=== PATIENT | female | born 1955 | race Caucasian/White ===

== ENCOUNTER 2016-10-13 12:00 | Emergency (ER) | payer OTHER ==
[2016-10-13] MEDS ORDERED: ZOFRAN ODT PO ONE (13:29)
[2016-10-13 14:13] LABS: BASO% 0.1 % (0.0-0.8); HEMATOCRIT 38.4 % (37.0-47.0); HEMOGLOBIN 13.2 g/dL (12.0-16.0); LYMPH# 0.95 X1000 (1.2-3.4); LYMPH% 7.9 % (20.5-51.1); MANUAL DIFF NEEDED? NO; MCH 29.5 PG (27-31); MCHC 34.4 g/dL (33-37); MCV 85.9 FL (81-99); MONO# 0.38 X1000 (0.11-0.59); MONO% 3.2 % (1.7-9.3); MPV 11.8 FL (7.4-10.4); NEUT% 88.8 % (42.2-75.2); PLT 246 X1000 (130-400); RBC 4.47 XMIL (4.2-5.4)
[2016-10-13 14:37] LABS: AGAP 18; ALBUMIN 4.5 g/dL (3.5-5.0); ALKALINE PHOSPHATASE 83 U/L (32-104); AMYLASE 32 U/L (20-200); BUN 21 mg/dL (8-22); CALCIUM 9.8 mg/dL (8.8-10.2); CHLORIDE 88 mmol/L (98-107); COSMO 276; GOT 19 U/L (10-30); GPT 19 U/L (10-36); LIPASE 17 U/L (13-60); MAGNESIUM 1.6 mg/dL (1.5-2.7); SODIUM 131 mmol/L (136-145); TCO2 25 mmol/L (25-35); TOTAL BILIRUBIN 0.43 mg/dL (0.20-1.00)
[2016-10-13] MEDS ORDERED: NS 1,000 ML IV ONE (15:05)
[2016-10-13] MEDS ORDERED: PHENERGAN IV ONE ×2 (15:05→18:51)
[2016-10-13] MEDS ORDERED: SODIUM CHLORIDE 0.9% INJ ONE ×2 (15:05→18:51)
--- NOTE | 2016-10-13 15:26 | PROVIDER DOCUMENTATION ---
Addendum entered and electronically signed by Pj Montes MD 10/13/16 18:58 : Additional Progress - ADDITIONAL PLAN OF CARE/RESULTS Additional Progress/Plan/Lab Results: examined left eye- pressure ok, notable photophobia, reactive 4mm pupil,no hyphema,no anterior chamber cloudiness, patient uncooperative to fundoscopic exam Original Note: HPI-General Adult - General Source: patient - History of Present Illness -Gen Adult Nature of Presenting Problems: Pt is a 61 yof who came to the ED with a cc of vomiting. Pt reports she vomited since last night and can't keep anything down. <Liudmila Mejia - Last Filed: 10/13/16 17:53> <Pj Montes - Last Filed: 10/13/16 18:49> - General Chief Complaint: Vomiting Stated Complaint: HEADACHE Time Seen by Provider: 10/13/16 12:45 Allergies/Adverse Reactions: Patient Allergies Allergy/AdvReac Type Severity Reaction Status Date / Time codeine Allergy Mild NAUSEA/VOMI Verified 10/13/16 17:58 TING Home Medications: Glimepiride [Amaryl] 4 mg PO BID 12/01/13 Metformin [Glucophage] 500 mg PO BID 12/01/13 PRAVAstatin [Pravachol] 20 mg PO DAILY 06/09/14 Sitagliptin Phosphate [Januvia] 100 mg PO DAILY 06/09/14 Aspirin [Aspirin EC] 81 mg PO DAILY 09/05/14 ATORVAstatin [Lipitor] 80 mg PO DAILY 10/13/16 Bupropion HCl [Bupropion Xl] 150 mg PO 5XDAY 10/13/16 ENALApril [Vasotec] 2.5 mg PO DAILY 10/13/16 Gabapentin 600 mg PO TID 10/13/16 Trazodone [Desyrel] 50 mg PO QHS 10/13/16 Review of Systems - Adult - REVIEW OF SYSTEMS - ADULT Constitutional: denies: chills, fever Eyes: denies: blurred vision, double vision Ears, Nose, Mouth & Throat: reports: no symptoms reported Cardiovascular: denies: heart murmur, orthopnea Respiratory: reports: no symptoms reported Gastrointestinal: reports: nausea, vomiting. denies: abdominal pain, hematemesis, diarrhea, difficulty swallowing, frequent heartburn Genitourinary: denies: frequent UTI's, hesitency Musculoskeletal: reports: no symptoms reported Integumentary: reports: no symptoms reported Neurological: reports: no symptoms reported Psychiatric: reports: no symptoms reported Endocrine: reports: no symptoms reported Hematologic/Lymphatic: reports: no symptoms reported Allergic/Immunologic: reports: no symptoms reported All Other Systems: Reviewed and Negative <Liudmila Mejia Filed: 10/13/16 17:53> Past History - Adult - PAST MEDICAL HISTORY-ADULT Review of Records: reports: Old Records Reviewed, Nursing Assessment Review Major Childhood Illnesses: reports: denies history Cardiovascular: reports: HTN, hyperlipidemia Respiratory: reports: denies history Gastrointestinal: reports: denies history Obstetrical/Gynecological: reports: denies history Genitourinary: reports: denies history Musculoskeletal: reports: denies history Neurological: reports: denies history Psychiatric: reports: depression Endocrine/Immune: reports: Diabetes Other Conditions: reports: skin disorder - PRIOR SURGERIES/PROCEDURES Surgical/Procedure History: reports: recent surgery, , orthopedic ( extremity) - IMMUNIZATION STATUS Childhood Immunizations: See Nurse Assessment Flu Vaccine: See Nurse Assessment - FAMILY HISTORY Family History: diabetes <Liudmila Mejia Last Filed: 10/13/16 17:53> Physical Exam-General - PHYSICAL EXAM-ADULT Initial Vital Signs Reviewed: Yes - CONSTITUTIONAL General Appearance: alert, no apparent distress - EYES Eyes: PERRL/EOMI, pink conjunctivae - HEAD, EARS, NOSE, MOUTH & THROAT HENMT: normocephalic/atraumatic, moist mucous membranes, normal ENT inspection - NECK Neck: non-tender, full range of motion, normal inspection - RESPIRATORY Respiratory: chest non-tender, lungs clear, normal breath sounds - CARDIOVASCULAR Cardiovascular: normal peripheral pulses, regular rate, rhythm, no edema - GASTROINTESTINAL (ABDOMEN) Abdominal Exam: normal bowel sounds, non tender, soft - LYMPHATIC Lymphatic: no adenopathy - MUSCULOSKELETAL Back Exam: normal inspection, no CVA tenderness, no vertebral tenderness Extremity: normal range of motion, non-tender, normal gait - SKIN Integumentary: normal color, normal turgor, warm/dry - NEUROLOGIC Neurologic: grossly normal, no motor/sensory deficits - PSYCHIATRIC Psych/Mental Status: normal mood/affect, normal thought content, normal thought process, oriented x 3 <Liudmila Mejia - Last Filed: 10/13/16 17:53> Progress - PLAN OF CARE/RESULTS Progress/Plan/Lab Results: Vital Signs - 24 hr 10/13/16 12:10 Temperature 97.6 F Pulse Rate 90 Respiratory 18 Rate Blood Pressure 178/92 O2 Sat by Pulse 100 Oximetry Orders Category Date Time Status NPO Diet 10/13/16 13:29 Active AMYLASE [CHEM] Stat Lab 10/13/16 13:58 Completed CBC WITH ELECTRONIC DIFF [HEME] Stat Lab 10/13/16 13:58 Completed COMPREHENSIVE METABOLIC PANEL [CHEM] Stat Lab 10/13/16 13:58 Completed LIPASE [CHEM] Stat Lab 10/13/16 13:58 Completed MAGNESIUM [CHEM] Stat Lab 10/13/16 13:58 Completed TROPONIN T Stat Lab 10/13/16 13:58 Completed URINALYSIS W/POSS RFLX CULT [URINALYSIS] Stat Lab 10/13/16 13:29 Uncollected 0.9% Sodium Chloride Inj [Ns] 1,000 ml Med 10/13/16 15:05 Active IV 999 mls/hr Ondansetron Odt [Zofran Odt] Med 10/13/16 13:29 Discontinued 8 mg PO NOW ONE Promethazine [Phenergan] Med 10/13/16 15:05 Discontinued 25 mg IV NOW ONE Sodium Chloride 0.9% Med 10/13/16 15:05 Discontinued 10 ml INJ NOW ONE Laboratory Tests 10/13/16 10/13/16 10/13/16 13:58 13:58 13:58 WBC 12.06 H RBC 4.47 Hgb 13.2 Hct 38.4 MCV 85.9 MCH 29.5 MCHC 34.4 RDW Std Deviation 12.1 Plt Count 246 MPV 11.8 H Neut % (Auto) 88.8 H Lymph % (Auto) 7.9 L Edwards % (Auto) 3.2 Eos % (Auto) 0.0 Baso % (Auto) 0.1 Neut # (Auto) 10.72 H Lymph # (Auto) 0.95 L Edwards # (Auto) 0.38 Eos # (Auto) 0.00 Baso # (Auto) 0.01 Sodium 131 L Potassium 4.0 Chloride 88 L Carbon Dioxide 25 Anion Gap 18 BUN 21 Creatinine 0.9 Estimated GFR/1.73 m2 > 60 BUN/Creatinine Ratio 23 Glucose 291 H Calculated Osmolality 276 Calcium 9.8 Magnesium 1.6 Total Bilirubin 0.43 AST 19 ALT 19 Alkaline Phosphatase 83 Troponin T < 0.010 Total Protein 8.0 Albumin 4.5 Globulin 3.5 Albumin/Globulin Ratio 1.3 Amylase 32 Lipase 17 - REASSESSMENT Reassessment #1 Time Reassessed: 17:53 (charge nurse Jessa said the pt sister called and she siad she thinks the is poisining her. Sister does not want the or pt to know. CT of the head was ordered and UDS is being checked) Status: unchanged <Liudmila Mejia - Last Filed: 10/13/16 17:53> - CT/MRI 1 CT Study: Head (no acute findings) <Pj Montes - Last Filed: 10/13/16 18:49> Departure <Liudmila Mejia - Last Filed: 10/13/16 17:53> - Departure Time of Disposition Order: 19:00 Certified Medical Emergency: Emergent <Pj Montes - Last Filed: 10/13/16 18:49> - Departure DIAGNOSIS: Volume depletion Nausea & vomiting Qualifiers: Vomiting type: unspecified Vomiting Intractability: non-intractable Qualified Code(s): R11.2 - Nausea with vomiting, unspecified Postoperative infection Qualifiers: Encounter type: initial encounter Qualified Code(s): T81.4XXA - Infection following a procedure, initial encounter Disposition: HOME 01 Condition: Stable Additional Instructions: followup with senior application security consultant on Saturday for evaluation of eye infection, clear liquids, followup with primary care provider on Saturday for further evaluation of nausea, plenty of fluids, hold Metformin for next 72 hours Prescriptions: Amoxicillin/Pot Clavulanate [Augmentin] 875 mg PO Q12HR #14 tablet Promethazine [Phenergan] 1 tab PO Q6H PRN PRN #15 tablet PRN Reason: Vomiting Referrals: None,PCP [Primary Care Provider] - Attestation - Scribe Verification/Attestation Scribe:: Liudmila Mejia Acting as Scribe for:: Kaleb Herndon Scribe documention review:: This chart was documented by a scribe and accurately reflects the service the provider performed and the decisions made by the provider. <Liudmila Mejia - Last Filed: 10/13/16 17:53> Physician Attestation
[2016-10-13] MEDS ORDERED: ROCEPHIN 1 GM/NS 50 ML IV ONE (15:34)
[2016-10-13 18:19] LABS: ACETAMINOPHEN < 1.2 ug/mL (10-30)
[2016-10-13 18:39] LABS: URINE CULTURE NEEDED? NO; URINE MICRO REVIEW NEEDED? NO; URINE SOURCE CLEAN CATCH
[2016-10-13 18:41] LABS: UR EPITHELIAL CELLS <10 /HPF (<10); URINE BACTERIA 1+ /HPF; URINE RBC <10 /HPF (<10); URINE WBC <10 /HPF (<10)
[2016-10-13 18:42] LABS: BILIRUBIN URINE NEGATIVE (NEGATIVE); BLOOD URINE SMALL (NEGATIVE); COLOR YELLOW; GLUCOSE URINE >1000 mg/dL (NEGATIVE); LEUKOCYTES URINE NEGATIVE (NEGATIVE); NITRITE URINE NEGATIVE (NEGATIVE); PROTEIN URINE 300 mg/dL (NEGATIVE); TURBIDITY URINE CLEAR (CLEAR); UROBILINOGEN URINE NORMAL (NORMAL)
[2016-10-13 18:54] LABS: UR AMPHETAMINES QUAL NONE DETECTED (NONE DETECT); UR BARBITUATES QUAL NONE DETECTED (NONE DETECT); UR BENZODIAZEPIN QUAL NONE DETECTED (NONE DETECT); UR CANNABINOIDS QUAL NONE DETECTED (NONE DETECT); UR COCAINE QUAL NONE DETECTED (NONE DETECT); UR METHADONE QUAL NONE DETECTED (NONE DETECT); UR OPIATES QUAL NONE DETECTED (NONE DETECT); UR OXYCODONE QUAL NONE DETECTED (NONE DETECT); UR PCP QUAL NONE DETECTED (NONE DETECT)
[2016-10-13 19:17] VITALS: BP 180/77
--- NOTE | 2016-10-13 21:05 | Diag Imaging Result Document ---
PROCEDURE NAME: HEAD W/WO CONTRAST - 10/13/2016 CT HEAD WITH AND WITHOUT IV CONTRAST: COMPARISON: None available. FINDINGS: There is no discrete intracranial mass, mass effect, or intracranial hemorrhage. There is no evidence of acute infarct. There is no hydrocephalus. There is no evidence of abnormal intracranial enhancement. There is a tiny right maxillary sinus mucous retention cyst. The orbits and globes are unremarkable. Surrounding soft tissues and bony structures are unremarkable, otherwise. IMPRESSION: No evidence of acute pathology.
== END 2016-10-13 19:16 | disposition home or self-care (01) ==
LOC: ED 12:00
DX: T81.4XXA Infection following a procedure, initial encounter (principal); E86.9 Volume depletion, unspecified; R11.2 Nausea with vomiting, unspecified; R51 Headache; H53.149 Visual discomfort, unspecified; I10 Essential (primary) hypertension; E78.5 Hyperlipidemia, unspecified; E11.9 Type 2 diabetes mellitus without complications; F32.9 Major depressive disorder, single episode, unspecified; Z79.82 Long term (current) use of aspirin; Z79.899 Other long term (current) drug therapy
CPT/HCPCS: 36415; 70470; 80053; 81001; 82150; 83690; 83735; 84484; 85025; 96361; 96365; 96375; 96376; G0480; J0696; J2550; J7030; Q9967; S0181

== ENCOUNTER 2019-06-06 00:28 | Inpatient (IN) ==
[2019-06-06 01:03] LABS: BASO# 0.03 X1000 (0.0-0.2); BASO% 0.2 % (0.0-0.8); EOS# 0.12 X1000 (0.0-0.7); HEMATOCRIT 34.4 % (37.0-47.0); HEMOGLOBIN 11.2 g/dL (12.0-16.0); IMM GRAN# 0.03 X1000 (0.0-0.04); IMM GRAN% 0.2 % (0.0-0.5); LYMPH# 2.74 X1000 (1.2-3.4); LYMPH% 21.9 % (20.5-51.1); MCH 28.8 PG (27-31); MCHC 32.6 g/dL (33-37); MCV 88.4 FL (81-99); MONO# 0.45 X1000 (0.11-0.59); MONO% 3.6 % (1.7-9.3); MPV 11.8 FL (7.4-10.4); NEUT# 9.13 X1000 (1.4-6.5); NEUT% 73.1 % (42.2-75.2); PLT 239 X1000 (130-400); RBC 3.89 XMIL (4.2-5.4); RDW 12.9 % (11.5-14.5)
[2019-06-06] MEDS ORDERED: NARCAN IV ONE (01:21)
[2019-06-06 01:32] LABS: UR AMPHETAMINES QUAL NONE DETECTED (NONE DETECT); UR BARBITUATES QUAL NONE DETECTED (NONE DETECT); UR BENZODIAZEPIN QUAL NONE DETECTED (NONE DETECT); UR CANNABINOIDS QUAL NONE DETECTED (NONE DETECT); UR COCAINE QUAL NONE DETECTED (NONE DETECT); UR METHADONE QUAL NONE DETECTED (NONE DETECT); UR METHAMPHETAMINE QUAL NONE DETECTED (NONE DETECT); UR OPIATES QUAL NONE DETECTED (NONE DETECT); UR OXYCODONE QUAL NONE DETECTED (NONE DETECT); UR PCP QUAL NONE DETECTED (NONE DETECT); UR PROPOXYPHENE QUAL NONE DETECTED (NONE DETECT); UR TCA QUAL NONE DETECTED (NONE DETECT)
[2019-06-06 01:38] LABS: INR 0.97; PROTIME 13.4 Seconds (11.0-16.0); PTT 24.4 Seconds (22.3-41.8)
[2019-06-06 01:44] LABS: ACETAMINOPHEN < 1.2 ug/mL (10-30); SALICYLATES < 3.00 mg/dL (3-10)
[2019-06-06 01:45] LABS: BILIRUBIN URINE NEGATIVE (NEGATIVE); BLOOD URINE 1+ (NEGATIVE); GLUCOSE URINE NEGATIVE (NEGATIVE); KETONE URINE NEGATIVE (NEGATIVE); LEUKOCYTES URINE TRACE (NEGATIVE); NITRITE URINE NEGATIVE (NEGATIVE); PROTEIN URINE TRACE mg/dL (NEGATIVE); UROBILINOGEN URINE NORMAL
[2019-06-06 01:46] LABS: CLARITY CLEAR (CLEAR); COLOR YELLOW
[2019-06-06 01:48] LABS: URINE EPITHELIAL CELLS <10 /HPF (<10); URINE WBC <10 /HPF (<10)
[2019-06-06 01:49] LABS: URINE BACTERIA 2+ /HFP; URINE CRYSTAL NONE SEEN /HPF; URINE RBC <10 /HPF (<10); URINE SOURCE CATH; URINE YEAST NONE SEEN /HPF
[2019-06-06 02:13] LABS: ALBUMIN 3.9 g/dL (3.5-5.0); CALCIUM 8.7 mg/dL (8.8-10.2); CREATININE 1.5 mg/dL (0.5-0.9); POTASSIUM 4.3 mmol/L (3.5-5.1); TOTAL BILIRUBIN 0.2 mg/dL (0.20-1.00); TOTAL PROTEIN 6.7 g/dL (6.3-8.3)
[2019-06-06] MEDS ORDERED: NS 1,000 ML IV ONE ×3 (02:59→03:38)
[2019-06-06] MEDS ORDERED: ROCEPHIN 1 GM in NS 50 ML IV ONE (03:00)
--- NOTE | 2019-06-06 03:42 | PROVIDER DOCUMENTATION ---
This chart was entered by Sukhi Peña Scribe, acting as scribe for Arely Fuller MD. HPI-General Adult - General Chief Complaint: Stroke-Like Symptoms Stated Complaint: stroke Time Seen by Provider: 06/06/19 00:28 Source: family, EMS Allergies/Adverse Reactions: Patient Allergies Allergy/AdvReac Type Severity Reaction Status Date / Time codeine Allergy Mild NAUSEA/VOMI Verified 06/06/19 01:15 TING Home Medications: Home Medication List Medication Instructions Recorded Confirmed Last Taken Type Metformin [Glucophage] 1,000 mg PO BID 12/01/13 06/06/19 10/13/16 07:00 History Bupropion HCl [Bupropion Xl] 300 mg PO DAILY 10/13/16 06/06/19 10/13/16 07:00 History ENALApril [Vasotec] 2.5 mg PO DAILY 10/13/16 06/06/19 10/13/16 07:00 History Trazodone [Desyrel] 50 mg PO QHS 10/13/16 06/06/19 10/12/16 21:00 History Escitalopram [Lexapro] 10 mg PO DAILY 06/06/19 06/06/19 Unknown History Gabapentin 800 mg PO TID 06/06/19 06/06/19 Unknown History Insulin Glargine,Hum.rec.anlog 100 unit SQ DIRECTED 06/06/19 06/06/19 Unknown History [Lantus Solostar] Sitagliptin Phosphate [Januvia] 100 mg PO DAILY 06/06/19 06/06/19 Unknown History - History of Present Illness -Gen Adult Nature of Presenting Problems: 64 y/o F presents to the ED via EMS due to being lethargic. at bedside reports that patient went to bed like normal. He woke up and heard the patient on the floor. reports that the patient was cold and clammy. reports that patient needed to have a bm and he was able to get her to the toilet. Per EMS patient's L pupil is larger than the right. 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 Review of Systems - Adult - REVIEW OF SYSTEMS - ADULT ROS:: limited per condition Constitutional: reports: see HPI Cardiovascular: reports: see HPI Respiratory: reports: see HPI Gastrointestinal: reports: see HPI, diarrhea Genitourinary: reports: no symptoms reported Musculoskeletal: reports: no symptoms reported Integumentary: reports: no symptoms reported Neurological: reports: see HPI Psychiatric: reports: see HPI Endocrine: reports: no symptoms reported Hematologic/Lymphatic: reports: no symptoms reported Allergic/Immunologic: reports: no symptoms reported All Other Systems: Reviewed and Negative Past History - Adult - PAST MEDICAL HISTORY-ADULT Review of Records: reports: Old Records Reviewed, Nursing Assessment Review, Medications Reviewed Major Childhood Illnesses: reports: denies history Cardiovascular: reports: HTN, hyperlipidemia Respiratory: reports: denies history Gastrointestinal: reports: denies history Obstetrical/Gynecological: reports: denies history Genitourinary: reports: denies history Musculoskeletal: reports: denies history Neurological: reports: denies history Psychiatric: reports: depression Endocrine/Immune: reports: Diabetes Other Conditions: reports: skin disorder - PRIOR SURGERIES/PROCEDURES Surgical/Procedure History: reports: recent surgery, , orthopedic (extremity) - IMMUNIZATION STATUS Childhood Immunizations: See Nurse Assessment Flu Vaccine: See Nurse Assessment - FAMILY HISTORY Family History: diabetes Physical Exam-General - PHYSICAL EXAM-ADULT Initial Vital Signs Reviewed: Yes - CONSTITUTIONAL General Appearance: no apparent distress, other (drowsy appearance) - EYES Eyes: other (slow pupil response. left pupil slightly larger than right.) - HEAD, EARS, NOSE, MOUTH & THROAT HENMT: normocephalic/atraumatic - NECK Neck: supple, normal inspection - RESPIRATORY Respiratory: lungs clear, normal breath sounds, no respiratory distress, no accessory muscle use - CARDIOVASCULAR Cardiovascular: normal peripheral pulses, regular rate, rhythm - GASTROINTESTINAL (ABDOMEN) Abdominal Exam: normal bowel sounds, non tender, soft, other (small area of ecchymosis on abdomen) - MUSCULOSKELETAL Back Exam: normal inspection - SKIN Integumentary: normal color, warm/dry - PSYCHIATRIC Psych/Mental Status: other (patient is drowsy. wakes up between questions and answers appropriately) Progress - PLAN OF CARE/RESULTS Progress/Plan/Lab Results: Vital Signs - 8 hr 06/06/19 00:29 06/06/19 01:02 06/06/19 01:14 Temperature 94.1 F L Pulse Rate 71 Respiratory Rate 18 Blood Pressure 109/56 130/58 O2 Sat by Pulse Oximetry 99 Laboratory Results - last 24 hr 06/06/19 06/06/19 06/06/19 00:46 00:46 00:46 WBC 12.50 H RBC 3.89 L Hgb 11.2 L Hct 34.4 L MCV 88.4 MCH 28.8 MCHC 32.6 L RDW Std Deviation 12.9 Plt Count 239 MPV 11.8 H Immature Gran % (Auto) 0.2 Neut % (Auto) 73.1 Lymph % (Auto) 21.9 [place] % (Auto) 3.6 Eos % (Auto) 1.0 Baso % (Auto) 0.2 Immature Gran # (Auto) 0.03 Neut # (Auto) 9.13 H Lymph # (Auto) 2.74 [place] # (Auto) 0.45 Eos # (Auto) 0.12 Baso # (Auto) 0.03 PT 13.4 INR 0.97 PTT (Actin FS) 24.4 POC Glucose Urine Source Urine Color Urine Clarity Urine pH Ur Specific Strong Urine Protein Urine Ketones Urine Blood Urine Nitrite Urine Bilirubin Urine Urobilinogen Urine Microscopic RBC Urine WBC Urine Microscopic WBC Ur Epithelial Cells Urine Crystals Urine Bacteria Urine Casts Urine Yeast Urine Glucose Salicylates < 3.00 L Urine Opiates Screen Ur Oxycodone Screen Urine Methadone Screen U Propoxyphene Qual Acetaminophen < 1.2 L Ur Barbituates Screen Ur Tricyclics Screen Ur Phencyclidine Scrn Ur Amphetamines Screen U Methamphetamines Scrn U Benzodiazepines Scrn Urine Cocaine Screen U Cannabinoids Screen 06/06/19 06/06/19 06/06/19 00:54 00:54 01:02 WBC RBC Hgb Hct MCV MCH MCHC RDW Std Deviation Plt Count MPV Immature Gran % (Auto) Neut % (Auto) Lymph % (Auto) Ventura % (Auto) Eos % (Auto) Baso % (Auto) Immature Gran # (Auto) Neut # (Auto) Lymph # (Auto) [place]ura # (Auto) Eos # (Auto) Baso # (Auto) PT INR PTT (Actin FS) POC Glucose 220 H Urine Source CATH Urine Color YELLOW Urine Clarity CLEAR Urine pH 5.0 Ur Specific Strong 1.020 Urine Protein TRACE A Urine Ketones NEGATIVE Urine Blood 1+ A Urine Nitrite NEGATIVE Urine Bilirubin NEGATIVE Urine Urobilinogen NORMAL Urine Microscopic RBC <10 Urine WBC TRACE A Urine Microscopic WBC <10 Ur Epithelial Cells <10 Urine Crystals NONE SEEN Urine Bacteria 2+ Urine Casts Urine Yeast NONE SEEN Urine Glucose NEGATIVE Salicylates Urine Opiates Screen NONE DETECTED Ur Oxycodone Screen NONE DETECTED Urine Methadone Screen NONE DETECTED U Propoxyphene Qual NONE DETECTED Acetaminophen Ur Barbituates Screen NONE DETECTED Ur Tricyclics Screen NONE DETECTED Ur Phencyclidine Scrn NONE DETECTED Ur Amphetamines Screen NONE DETECTED U Methamphetamines Scrn NONE DETECTED U Benzodiazepines Scrn NONE DETECTED Urine Cocaine Screen NONE DETECTED U Cannabinoids Screen NONE DETECTED Orders Category Date Time Status Swann Cath Insertion ORDERED Care 06/06/19 01:23 Active Saline Loc NOW Care 06/06/19 00:36 Active CHEST-PORTABLE [RAD] Stat Exams 06/06/19 00:[address] HEAD W/O CONTRAST [CT] Stat Exams 06/06/19 00:16 Taken ACETAMINOPHEN [TDM] Stat Lab 06/06/19 00:46 Completed ALCOHOL BLOOD Stat Lab 06/06/19 00:46 Received CBC WITH DIFF [HEME] Stat Lab 06/06/19 00:46 Completed COMPREHENSIVE METABOLIC PANEL [CHEM] Stat Lab 06/06/19 00:46 Received PROTIME WITH INR [COAG] Stat Lab 06/06/19 00:46 Completed PTT [COAG] Stat Lab 06/06/19 00:46 Completed SALICYLATES [TDM] Stat Lab 06/06/19 00:46 Completed TROPONIN T Stat Lab 06/06/19 00:[address] W/POSS RFLX CULT [URINALYSIS] Stat Lab 06/06/19 00:54 Results URINE DRUG SCREEN [address] Stat Lab 06/06/19 00:54 Completed Naloxone [Narcan] Med 06/06/19 01:21 Discontinued 1 mg IV NOW ONE EKG [EKG] Stat Ther 06/06/19 00:36 Ordered Patient with slightly elevated WBC to 12.5. UA weakly positive but will treat. No change in mental status with Narcan. Eyes minimally reactive but patient has a history of implants. Cr elevated to 1.5 but unknown if this is her baseline as last Cr in EMR was October [address] Head was negative. was counseled on findings and advised of recommendation of admission. Spoke to Dr Julien, surgery consultant hospitalist, states to have warehouse distribution associate to evaluate and if patient is stable for floor can stay at [facility] but if not needs to be transferred to [facility]. grocery supervisor came to evaluate and is ok with patient staying on floor. Basic admission orders placed. Result Diagrams: 06/06/19 00:46 06/06/19 00:46 - XRAY 1 XRAY Study: Chest Impression: Normal - CT/MRI 1 CT Study: Head Impression: Normal - CONSULTS/PCP/HOSPITALIST Notification #1 *Consult/PCP/Hospitalist*: Dr Julien Time Discussed: 03:30 Consult Disposition: Admit Departure - Departure Date of Disposition Decision: 06/06/19 Time of Disposition Decision: 03:41 DIAGNOSIS: Altered mental status, Hypothermia, UTI (urinary tract infection), LOREN (acute kidney injury) Disposition: ADMITTED INPATIENT 09 Certified Medical Emergency: Emergent Condition: Stable Referrals and Follow-Ups: None,PCP [Primary Care Provider] - - Critical Care Note This patient required my direct & personal management of CC.: No Attestation - Physician/ DOYLE Attestation Patient care was provided by Advanced Practice Provider:: No The physician spent face to face time with patient:: Yes Advanced Practice Provider documentation review:: Supervising physician onsite and consulted in the evaluation and care of this patient. The physician did have a face to face encounter with the patient. This chart was documented by the indicated scribe, (Sukhi Peña Scribe) and accurately reflects the services I performed and decisions made by me, Arely Fuller MD, as attested by the provider's signature.
--- NOTE | 2019-06-06 06:41 | EKG Report ---
Test Performed on : 06/06/2019 00:45:31 AM Test Reason : AMS Blood Pressure : / mmHG Vent. Rate : 070 BPM Atrial Rate : 070 BPM P-R Int : 154 ms QRS Dur : 090 ms QT Int : 458 ms P-R-T Axes : 075 088 069 degrees QTc Int : 494 ms Normal sinus rhythm. Possible Left atrial enlargement Low voltage QRS Prolonged QT Abnormal ECG When compared with ECG of 03-JUN-2017 11:26, No significant change was found Unconfirmed Result
--- NOTE | 2019-06-06 08:31 | Diag Imaging Result Doc PS360 ---
EXAM: CHEST-PORTABLE INDICATION: AMS TECHNIQUE: One view COMPARISON: 10/27/2017 FINDINGS: There is minimal subsegmental atelectasis at the right lower lung zone. The lungs are grossly clear, otherwise. There is no discrete pleural fluid collection or pneumothorax. The cardiomediastinal silhouette and central vasculature are grossly unremarkable. IMPRESSION: Minimal right lower lung zone atelectasis. No definite acute pathology, otherwise. Electronically signed by Swapnil Vila 06/06/2019 8:29 AM
[2019-06-06 09:58] LABS: HEMOGLOBIN A1C 6.6 % (4.8-6.0)
[2019-06-06 10:52] LABS: FREE T4 1.34 ng/dL (0.93-1.70)
[2019-06-06 10:54] LABS: TSH 5.32 uIUmL (0.27-4.20)
--- NOTE | 2019-06-06 11:00 | Diag Imaging Result Doc PS360 ---
EXAM: CT HEAD W/O CONTRAST INDICATION: stroke like TECHNIQUE: This exam was performed using automated exposure control, adjustment of mA or kV according to patient size, and/or use of iterative reconstruction technique. COMPARISON: 06/03/2017 FINDINGS: There is no definite acute infarct given the limited sensitivity of CT versus MRI. There is no discrete intracranial mass, mass effect, or intracranial hemorrhage. The surrounding soft tissues and bony structures are essentially unremarkable. IMPRESSION: No evidence of acute intracranial pathology. Electronically signed by Swapnil Vila 06/06/2019 10:58 AM
[2019-06-06] MEDS: LEXAPRO PO SCH (11:28)
[2019-06-06] MEDS: WELLBUTRIN XL PO SCH (11:28)
[2019-06-06] MEDS: JANUVIA PO SCH (11:29)
[2019-06-06] MEDS: HUMULIN R (PARKWAY) SUBQ SCH ×3 (12:00→22:13)
[2019-06-06] MEDS: NS 1,000 ML IV SCH (12:22)
--- NOTE | 2019-06-06 14:01 | HISTORY AND PHYSICAL ---
ADDENDUM: This is a 64-year-old female who was seen by me face to face and I fully agree with the assessment and plan of nurse practitioner Mary Osorio. The patient had some altered mental status because of which she was brought in here and she has been getting IV fluids, which will help improve her hydration status. She also has diabetes for which she will continue getting regular insulin as per sliding scale and her routine home medications. I am going to add low-dose aspirin to her medication regimen. She is going to have an MRI and MRA of brain for further evaluation of her altered mental status, although it seems that her altered mental status has now improved. Furthermore, we are going to get a carotid Doppler study done and also get her some physical therapy. Further recommendations will be given as per hospital course. cc: Kathie Julien MD
--- NOTE | 2019-06-06 14:08 | HISTORY AND PHYSICAL ---
PRIMARY CARE PROVIDER: Dr. Arnaud Plascencia. CHIEF COMPLAINT: Confusion, diarrhea, as well as foul smelling urine and cold and clammy. 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 Went to bed, was normal at 11 p.m. She woke her up around 11:15-11:30 complaining of not feeling well. He could tell she was lethargic. She was cold and clammy but complained of being hot and then she needed assistance to have a bowel movement. She had a watery brown bowel movement. He assisted her back to the room. He left the room and he came back she was on the floor sitting up and then flung backward and appeared to have passed out or had a syncopal spell. She was very confused and essentially became nonverbal for a little bit. Had some nausea. Was cold and clammy. The right pupil is smaller than her left pupil but she had surgery on that left pupil according to her the left and it has been that way for a long time. She also states that there is really no urinary symptoms except she does have foul smelling urine. She shows to either have some CKD her acute kidney injury. She was hypothermic with a temperature of 94.[address] was negative. Only some mild acute kidney injury and urinary tract infection. She was hyperglycemic. She did have elevated white blood cell count but essentially could find no other reasons for her symptoms. Her symptoms have since resolved. We will get an echo and a carotid ultrasound. Unable to get MRI due to it being the weekend and we will continue to monitor. PAST MEDICAL HISTORY: 1. Hypertension. 2. Hyperlipidemia. 3. Diabetes mellitus type 2. 4. Chronic partial right upper extremity mild hemiparesis secondary to 2008 neck surgery. 5. Depression. SURGICAL HISTORY: 1. section. 2. Neck surgery. 3. Carpal tunnel. 4. 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 SOCIAL HISTORY: Quit smoking 42 years ago but rarely smoked even then. Denies alcohol or illicit drug use. She currently works at [employer]. FAMILY HISTORY: Mother side diabetes, high blood pressure and she had to have CABG at 66. Father had hypertension, stroke and he also had testicular cancer. ALLERGIES: Codeine causes nausea. HOME MEDICATIONS: 1. Trazodone 50 mg p.o. nightly. 2. Wellbutrin 300 mg p.o. daily. 3. Neurontin 800 mg p.o. t.i.d. 4. Metformin 1000 mg p.o. twice daily. 5. Januvia 100 mg p.o. daily. 6. Insulin. 7. Lexapro 10 mg p.o. daily. 8. Vasotec 2.5 mg p.o. daily. REVIEW OF SYSTEMS: Fourteen point review of systems are complete and all were negative except those mentioned above HPI. PHYSICAL EXAMINATION: VITAL SIGNS: Temperature 98.2 degrees, heart rate 85, respiratory rate 16, blood pressure 125/54 O2 saturation 98% on room air. GENERAL: Ms. Wanda Paez is a 64-year-old female. She is in no acute distress. She is able answer questions appropriately. HEENT: Atraumatic, normocephalic. Pupils equal, round, reactive to light. Extraocular movements intact. Mucous membranes are dry. NECK: Trachea midline. CARDIOVASCULAR: S1, S2. Regular rate and rhythm. No rubs, gallops, murmurs. No lower extremity edema. +2 dorsalis and radial pulses. Negative JVD or carotid bruits. PULMONARY: Clear to auscultate. Bilateral breath sounds. No accessory muscle use or work of breathing noted. GI: Soft, nontender, nondistended. Positive bowel sounds x4. EXTREMITIES: Moves all extremities equally except for right upper extremity strength is decreased and always feels a burning sensation in it. NEUROLOGIC: A and O x3. Follows commands. Sensory is intact except for the right upper extremity. SKIN: Warm, dry, intact. Some ecchymosis small area on the abdomen and it has been there for about 2 weeks according to her. LABORATORY DATA: White blood cells 12,000, hemoglobin 11, hematocrit 34, platelet count 239,000. INR 0.97. PTT 24.4. Sodium 139, potassium 4.3, BUN 27, creatinine is 1.5 glucose 228. Hemoglobin A1c is 6.6, calcium 8.7, bilirubin 0.20. AST 19, ALT 10. Troponin less than 0.01. ProBNP is 369, albumin 3.9. Triglycerides were elevated at 158. The total cholesterol is 244. TSH is 5.32, free T4 is 1.34. Urinalysis trace protein, 1+ blood, trace white blood cells, 2+ bacteria. Urine drug screen negative. Alcohol level negative. IMAGING: Head CT. No evidence of acute intracranial pathology. Chest x-ray. Minimal right lower lung zone atelectasis. EKG normal sinus rhythm. Rate 78, QTc 494. ASSESSMENT/PLAN: 1. Possible transient ischemic attack. Symptoms have resolved this morning already. MRI is not available until Saturday and today is Saturday. We will go ahead and get a carotid ultrasound and echocardiogram. 2. Metabolic encephalopathy. Could be from infection of the urine. She does have elevated white count, an possible urine urinary tract infection. It could have added to some of her confusion. 3. Syncope please see #1. Again we will get an echocardiogram and carotid ultrasound. 4. Hypertension. Hold antihypertensives for now. 5. Acute kidney injury. Should improve with IV fluid hydration. If continues to be elevated tomorrow we will do some urine labs and maybe even a renal ultrasound if needed. 6. Diabetes mellitus type 2. Pattern blood glucoses, sliding scale insulin and diabetic diet. The hemoglobin A1c is 6.6. 7. Depression, continue home medications. 8. Hyperlipidemia with hypertriglyceridemia. It does not appear that she is on any medications for her cholesterol. Reviewing external medication history again no medications for cholesterol so we may add fenofibrate or Tricor for the triglycerides that are elevated. Start that tonight. We can do a statin as well. 9. Deep venous thrombosis prophylaxis, sequential compression devices. 10. Urinary tract infection with only symptom being foul smelling urine. Also with leukocytosis. She is getting IV fluid hydration. Dictated by TREMAYNE Lucero for Kathie Julien MD cc: TREMAYNE Lucero MD Malcolm R. Hendricks, MD
--- NOTE | 2019-06-06 15:09 | ECHO REPORT ---
ORDER DATE: 06/06/2019 INDICATION: Syncope. FINDINGS: 1. The right atrium appears normal in size. 2. Mild tricuspid regurgitation. RV systolic pressure of 30. 3. Normal RV size and systolic function. 4. No significant pulmonic insufficiency. 5. Mild left atrial enlargement with a volume index of 30. 6. No mitral valve prolapse. Mild mitral regurgitation. No evidence of mitral stenosis. 7. Normal LV size, end-diastolic dimension of 4.1. Mild left ventricular hypertrophy with a posterior and interventricular septal wall thickness of 1.0 and 1.3 cm respectively. Normal LV systolic function. Estimated EF is 65%. 8. Aortic valve opens well. It is trileaflet. No evidence of stenosis or insufficiency. 9. Aorta appears normal in visualized segments. 10. No pericardial effusion seen. cc: MD Mary Rai CRNP
[2019-06-06] MEDS: NEURONTIN PO SCH ×2 (15:28→17:32)
[2019-06-06] MEDS: ASPIRIN PO SCH (15:28)
[2019-06-06] MEDS: DESYREL PO SCH (22:13)
[2019-06-06] MEDS: LIPITOR PO SCH (22:13)
[2019-06-06] MEDS: TRICOR PO SCH (22:13)
[2019-06-07] MEDS: HUMULIN R (PARKWAY) SUBQ SCH ×4 (06:18→21:30)
[2019-06-07 06:55] LABS: BASO# 0.02 X1000 (0.0-0.2); BASO% 0.3 % (0.0-0.8); EOS# 0.24 X1000 (0.0-0.7); EOS% 3.6 % (0.0-10.0); HEMATOCRIT 27.8 % (37.0-47.0); HEMOGLOBIN 8.8 g/dL (12.0-16.0); IMM GRAN# 0.01 X1000 (0.0-0.04); IMM GRAN% 0.1 % (0.0-0.5); LYMPH# 2.74 X1000 (1.2-3.4); LYMPH% 40.8 % (20.5-51.1); MCH 28.6 PG (27-31); MCHC 31.7 g/dL (33-37); MCV 90.3 FL (81-99); MONO# 0.45 X1000 (0.11-0.59); MONO% 6.7 % (1.7-9.3); MPV 11.9 FL (7.4-10.4); NEUT# 3.26 X1000 (1.4-6.5); NEUT% 48.5 % (42.2-75.2); PLT 187 X1000 (130-400); RBC 3.08 XMIL (4.2-5.4); RDW 12.6 % (11.5-14.5); WBC 6.72 X1000 (4.8-10.8)
[2019-06-07 07:13] LABS: AGAP 9; ALBUMIN 3.4 g/dL (3.5-5.0); ALKALINE PHOSPHATASE 57 U/L (32-104); BUN 12 mg/dL (8-22); CALCIUM 8.6 mg/dL (8.8-10.2); CHLORIDE 108 mmol/L (98-107); COSMO 284; CREATININE 0.8 mg/dL (0.5-0.9); ESTIMATED GFR > 60; GLUCOSE 82 mg/dL (70-104); GOT 12 U/L (10-30); GPT 8 U/L (10-36); POTASSIUM 3.6 mmol/L (3.5-5.1); SODIUM 143 mmol/L (136-145); TCO2 27 mmol/L (25-35); TOTAL BILIRUBIN < 0.15 mg/dL (0.20-1.00); TOTAL PROTEIN 5.8 g/dL (6.3-8.3)
[2019-06-07] MEDS: LEXAPRO PO SCH (10:03)
[2019-06-07] MEDS: NEURONTIN PO SCH ×3 (10:03→17:37)
[2019-06-07] MEDS: ASPIRIN PO SCH (10:03)
[2019-06-07] MEDS: WELLBUTRIN XL PO SCH (10:03)
[2019-06-07] MEDS: JANUVIA PO SCH (10:03)
[2019-06-07] MEDS ORDERED: TYLENOL PO PRN (11:52)
[2019-06-07] MEDS: NS 1,000 ML IV SCH (13:59)
--- NOTE | 2019-06-07 14:28 | Extremity Venous Study ---
EXAM: Carotid Ultrasound INDICATION: cva symptoms; syncope TECHNIQUE: COMPARISON: None. FINDINGS: Right: There is no significant atherosclerotic disease involving the right carotid system on grayscale images. The peak systolic velocity measures 74, 73, 56, 80, 105, 75, and 96 cm/s at the right subclavian artery, CCA, bifurcation, proximal ICA, mid ICA, distal ICA, and ECA, respectively. There is antegrade flow in the vertebral artery. The carotid ratio is 1.44. Left: There is no significant atherosclerotic disease involving the left carotid system on grayscale images. The peak systolic velocity measures 182, 95, 85, 112, 119, 73, and 73 cm/s at the left subclavian artery, CCA, bifurcation, proximal ICA, mid ICA, distal ICA, and ECA, respectively. There is antegrade flow in the vertebral artery. The carotid ratio is 1.24. IMPRESSION: No significant atherosclerotic plaque identified on grayscale images. However, based on Doppler flow dynamics, there should be a 40-59% stenosis of the proximal left ICA. Electronically signed by Swapnil Vila 06/07/2019 2:25 PM
--- NOTE | 2019-06-07 18:17 | PROGRESS NOTE ---
DATE: 06/07/2019 Patient reports feeling still headache, somehow dizzy, she denies any other symptoms now. OBJECTIVE: Vitals: Temperature 98.2 degrees, heart rate 70, respiratory rate 16, BP 150/68, O2 saturation 99% on room air. General: This is a 64-year-old female lying in bed in no acute distress. Cardiovascular: S1, S2 heard. No murmurs, gallops, rubs. Regular rate and rhythm. Respiratory: Clear bilaterally to auscultation. No work of breathing or using accessory muscles. Abdomen: Soft, nontender to palpation, bowel sounds present. No organomegaly. Extremities: No clubbing, cyanosis, or edema. Peripheral pulses present in both legs. Neurologic: The patient is alert, oriented x3. Right upper extremity patient cannot move it . LABORATORY DATA: Reviewed. ASSESSMENT AND PLAN: 1. Possible transient ischemic attack. All her symptoms at presentation has resolved but she still complaining of dizziness and headaches. I talked with the patient and she agreed to stay until Saturday to get an MRI done considering that somehow some symptoms persist still. So far carotid ultrasound, echocardiogram has been informed grossly normal so will continue with same management. 2. Metabolic encephalopathy. Patient mental status is definitely better completely resolved. Will continue to monitor. 3. Possible urinary tract infection, urine culture is negative so she is not receiving antibiotics. 4. Hypertension. At this point all antihypertensive medication has been held will continue to monitor vitals. 5. Acute kidney injury resolved. 6. Diabetes mellitus type 2, will continue with sliding scale insulin, Accu-Chek before meals and also bedtime. Hemoglobin A1c is 6.6 which means excellent good control. 7. Depression, will continue with home medications. 8. Disposition, as we mentioned before will continue to monitor this patient closely and on Saturday morning she is going to have MRI of the brain with and without contrast and will go from there. cc: Thien Allen MD MTDD
[2019-06-07] MEDS: TRICOR PO SCH (21:20)
[2019-06-07] MEDS: DESYREL PO SCH (21:21)
[2019-06-07] MEDS: LIPITOR PO SCH (21:21)
[2019-06-08 06:26] LABS: BASO# 0.03 X1000 (0.0-0.2); BASO% 0.5 % (0.0-0.8); EOS# 0.15 X1000 (0.0-0.7); EOS% 2.7 % (0.0-10.0); HEMATOCRIT 29.4 % (37.0-47.0); HEMOGLOBIN 9.1 g/dL (12.0-16.0); IMM GRAN# 0.01 X1000 (0.0-0.04); IMM GRAN% 0.2 % (0.0-0.5); LYMPH# 2.45 X1000 (1.2-3.4); LYMPH% 43.5 % (20.5-51.1); MCH 27.7 PG (27-31); MCV 89.6 FL (81-99); MONO# 0.51 X1000 (0.11-0.59); MONO% 9.1 % (1.7-9.3); MPV 12.1 FL (7.4-10.4); NEUT# 2.48 X1000 (1.4-6.5); PLT 194 X1000 (130-400); RBC 3.28 XMIL (4.2-5.4); RDW 12.7 % (11.5-14.5); WBC 5.63 X1000 (4.8-10.8)
[2019-06-08] MEDS: HUMULIN R (PARKWAY) SUBQ SCH ×5 (06:42→23:35)
[2019-06-08 06:54] LABS: CHLORIDE 106 mmol/L (98-107); POTASSIUM 3.9 mmol/L (3.5-5.1); SODIUM 143 mmol/L (136-145)
[2019-06-08 06:55] LABS: AGAP 8; ALBUMIN 3.4 g/dL (3.5-5.0); ALKALINE PHOSPHATASE 57 U/L (32-104); BUN 14 mg/dL (8-22); CALCIUM 8.3 mg/dL (8.8-10.2); COSMO 287; CREATININE 0.9 mg/dL (0.5-0.9); ESTIMATED GFR > 60; GLUCOSE 132 mg/dL (70-104); GOT 12 U/L (10-30); GPT 8 U/L (10-36); TCO2 30 mmol/L (25-35); TOTAL BILIRUBIN < 0.15 mg/dL (0.20-1.00); TOTAL PROTEIN 5.8 g/dL (6.3-8.3)
[2019-06-08] MEDS: NEURONTIN PO SCH ×4 (09:35→20:28)
[2019-06-08] MEDS: WELLBUTRIN XL PO SCH (09:35)
[2019-06-08] MEDS: JANUVIA PO SCH (09:35)
[2019-06-08] MEDS: ASPIRIN PO SCH (09:36)
[2019-06-08] MEDS: LEXAPRO PO SCH (09:36)
--- NOTE | 2019-06-08 12:10 | PROGRESS NOTE ---
DATE: 06/08/2019 SUBJECTIVE: Patient reports feeling still weak with some headache and dizziness basically the comparing with yesterday. She denies any other symptoms now. OBJECTIVE: Vital Signs: Temperature 98.3 degrees, heart rate 67, respiratory rate 16, blood pressure 175/62 and O2 saturation 96% on room air. General: This is a 64-year-old female lying in bed in no acute distress. Cardiovascular: S1, S2 heard. No murmurs, gallops, or rubs. Regular rate and rhythm. Respiratory: Clear bilaterally to auscultation. No work of breathing or using accessory muscles. Abdomen: Soft. Nontender to palpation. Bowel sounds present. No organomegaly. Extremities: No clubbing, cyanosis, or edema. Peripheral pulses present in both legs. Neurological: Patient is alert and oriented x3. Right upper extremity, the patient can move it. LABORATORY DATA: Reviewed. ASSESSMENT AND PLAN: 1. Possible TIA. All of her symptoms at presentation has resolved although she complains still of some dizziness and headache. The patient is worried about those symptoms, and she agreed to stay until tomorrow to get an MRI of the brain and MRA of the head as well. So far, his workup including carotid ultrasound and echocardiogram has been grossly normal. We will continue to monitor this patient closely. 2. Physical deconditioning. The patient reports becoming very weak lastly so Physical Therapy and Occupational Therapy has been consulted. We have also consulted social work for discharge planning. 3. Metabolic encephalopathy resolved. 4. Possible urinary tract infection. Ruled it out. Urine cultures negative. 5. Hypertension. Blood pressure is a little bit high. On admission, we have held her home medications. In this case, enalapril that she is receiving very low doses 2.5 mg p.o. daily. I think at this point considering her blood pressure is in the range of 170, we will increase the dose of 10 mg p.o. daily. 6. Diabetes mellitus type 2. We will continue with sliding scale insulin. Accu-Chek before meals and also at bedtime. 7. Acute kidney injury resolved. 8. Depression. We will continue home medications. 9. Disposition. At this point, we are planning to do an MRI of the brain and MRA as well. Also, we have consulted the occupational therapy as well. We have consulted social sciences lecturer as well. We will see this patient. She is able to go home tomorrow if the workup is negative or she needs to have home health or going to rehab. We will see what those exams show and what evaluation from PT and OT shows. We will go from there. cc: Thien Allen MD
[2019-06-08] MEDS: VASOTEC PO SCH (12:40)
[2019-06-08] MEDS: NS 1,000 ML IV SCH ×2 (14:52→17:54)
[2019-06-08] MEDS: DESYREL PO SCH (20:23)
[2019-06-08] MEDS: LIPITOR PO SCH (20:24)
[2019-06-08] MEDS: TRICOR PO SCH (20:24)
[2019-06-09] MEDS: NS 1,000 ML IV SCH ×2 (04:28→11:07)
[2019-06-09] MEDS: HUMULIN R (PARKWAY) SUBQ SCH ×2 (07:11→11:06)
[2019-06-09 07:14] LABS: AGAP 7; ALBUMIN 3.3 g/dL (3.5-5.0); ALKALINE PHOSPHATASE 56 U/L (32-104); BUN 16 mg/dL (8-22); CALCIUM 8.3 mg/dL (8.8-10.2); CHLORIDE 102 mmol/L (98-107); COSMO 283; CREATININE 0.9 mg/dL (0.5-0.9); ESTIMATED GFR > 60; GLUCOSE 180 mg/dL (70-104); GOT 11 U/L (10-30); GPT 8 U/L (10-36); POTASSIUM 4.2 mmol/L (3.5-5.1); SODIUM 139 mmol/L (136-145); TCO2 30 mmol/L (25-35); TOTAL BILIRUBIN < 0.15 mg/dL (0.20-1.00); TOTAL PROTEIN 5.5 g/dL (6.3-8.3)
[2019-06-09 07:40] LABS: BASO# 0.04 X1000 (0.0-0.2); BASO% 0.7 % (0.0-0.8); EOS# 0.22 X1000 (0.0-0.7); EOS% 3.7 % (0.0-10.0); HEMATOCRIT 30.5 % (37.0-47.0); HEMOGLOBIN 9.4 g/dL (12.0-16.0); IMM GRAN# 0.01 X1000 (0.0-0.04); IMM GRAN% 0.2 % (0.0-0.5); LYMPH# 2.64 X1000 (1.2-3.4); LYMPH% 44.8 % (20.5-51.1); MCH 27.6 PG (27-31); MCHC 30.8 g/dL (33-37); MCV 89.4 FL (81-99); MONO# 0.52 X1000 (0.11-0.59); MONO% 8.8 % (1.7-9.3); MPV 12.2 FL (7.4-10.4); NEUT# 2.46 X1000 (1.4-6.5); NEUT% 41.8 % (42.2-75.2); PLT 204 X1000 (130-400); RBC 3.41 XMIL (4.2-5.4); RDW 12.6 % (11.5-14.5); WBC 5.89 X1000 (4.8-10.8)
[2019-06-09] MEDS: LEXAPRO PO SCH (09:19)
[2019-06-09] MEDS: VASOTEC PO SCH (09:19)
[2019-06-09] MEDS: WELLBUTRIN XL PO SCH (09:19)
[2019-06-09] MEDS: NEURONTIN PO SCH (09:19)
[2019-06-09] MEDS: JANUVIA PO SCH (09:19)
[2019-06-09] MEDS: ASPIRIN PO SCH (09:19)
--- NOTE | 2019-06-09 14:36 | Diag Imaging Result Doc PS360 ---
MRI BRAIN W/WO CONTRAST - 06/09/2019 INDICATION: cva symptoms COMPARISON: Head CT 06/06/2019 FINDINGS: There is no area of restricted diffusion. The ventricles and sulci are normal in size and contour. No intracranial mass or hemorrhage. There is mild periventricular white matter hyperintensity compatible with chronic microvascular disease. No abnormal contrast enhancement. IMPRESSION: No acute disease. Electronically signed by Axel Sanchez 06/09/2019 2:34 PM
--- NOTE | 2019-06-09 14:37 | Diag Imaging Result Doc PS360 ---
MRA BRAIN W/O CONTRAST - 06/09/2019 INDICATION: cva symptoms; syncope TECHNIQUE: Noncontrast [id number]-dclaev technique was used COMPARISON: None FINDINGS: The intracranial arteries are all normal. There is no aneurysm or significant stenosis. Anatomy is conventional. IMPRESSION: Negative exam. Electronically signed by Axel Sanchez 06/09/2019 2:35 PM
[2019-06-09 15:29] VITALS: BP 180/83
--- NOTE | 2019-06-09 19:52 | DISCHARGE SUMMARY ---
ADMISSION DATE: 06/06/2019 DISCHARGE DATE: 06/09/2019 PERTINENT PROCEDURES: 1. Head CT: No evidence of acute intracranial pathology. 2. Brain MRA: Negative exam. 3. Brain MRI: No acute disease. DISCHARGE DIAGNOSES: 1. Possible transient ischemic attack. All symptoms at presentation have completely resolved. She was complaining of some mild dizziness and headache. She has had a full neurological workup that has all been negative along with carotid ultrasound and echocardiogram that were grossly normal. 2. Physical deconditioning. The patient has been working with physical therapy as well as OT. She stated that she is back to her normal baseline and was given exercises to do from home. 3. Metabolic encephalopathy, resolved. 4. Possible urinary tract infection that was ruled out. Her antibiotic was stopped. 5. Hypertension. Continue home medications. Somewhat uncontrolled. She will need to follow up with her PCP. 6. Diabetes mellitus type 2. Continue with home medications. 7. Acute kidney injury, resolved. 8. Situational depression. Continue her home medications. HOSPITAL COURSE: Briefly, Miss Paez is a 64-year-old female with a past medical history of hypertension, hyperlipidemia, diabetes mellitus type 2, chronic right upper extremity paralysis due to a 2008 neck surgery, and depression who came in after not feeling well. She was lethargic, cold, and clammy. Her prior to coming in had assisted her to the bathroom. When he came back she was on the floor sitting and then flung herself backwards and appeared to have possibly had a syncopal episode. She was very confused and essentially became nonverbal for a little bit with some nausea. Again, cold and clammy. Her right pupil was smaller than the left, but she had surgery on the left pupil, according to her, and it had been unequal for a long time. She underwent a head CT that did not show anything acute. There were some complaints of a possible urinary tract infection, so she was initiated on IV antibiotics and treated for her hyperglycemia. She has undergone a full neurological workup with a head CT, echocardiogram, carotid Dopplers, brain MRA, and brain MRI which have all been completely negative. Her symptoms have resolved. She has worked with Physical Therapy. She did not feel she needed rehab as well as that reflected PT's notes. They gave her some home exercises for her to complete. She is now being discharged back home with family. VITAL SIGNS: Temperature is 97.9 degrees, heart rate 77, respirations 18, blood pressure 190/83, and O2 is 95% on room air. DISCHARGE DIET: Diabetic. DISCHARGE MEDICATIONS: 1. Desyrel 50 mg p.o. at bedtime. 2. Wellbutrin XL 300 mg p.o. daily. 3. Gabapentin 800 mg p.o. t.i.d. 4. Glucophage 1000 mg p.o. b.i.d. 5. Januvia 100 mg p.o. daily. 6. Lexapro 10 mg p.o. daily. 7. Vasotec 2.5 mg p.o. daily. 8. Tricor 145 mg p.o. at bedtime. 9. Aspirin 81 mg p.o. daily. 10. Lantus SoloSTAR 100 units subcutaneously as directed. FOLLOWUP: Miss Paez is being discharged back home to follow up with her primary care provider, Dr. Arnaud Plascencia. She is to continue with her physical therapy exercises that she was given. She can return to the ED or call 911 for any worsening of symptoms. Dictated by TREMAYNE Castillo for Guru Whyte MD cc: Guru Whyte MD
--- NOTE | 2019-06-10 01:41 | DISCHARGE SUMMARY ---
ADMISSION DATE: 06/06/2019 DISCHARGE DATE: 06/09/2019 ADDENDUM: Patient seen and examined by myself. Full note dictated and discussed with nurse practitioner. Patient presented to the hospital, ruled out for stroke. All of her TIA symptoms resolved. She did have some issues with physical deconditioning, but thankfully that continued to improve. On discharge, she was able to ambulate back and forth to the restroom without any assistance. Please see full note. cc: Guru Whyte MD
== END 2019-06-09 16:25 | disposition home or self-care (01) | DRG 69 ==
LOC: P.ED 00:28 → P.MEDSURG 04:32 → SUATTDRO 04:32
PROVIDERS: ATTEND Family Medicine